=== PATIENT | female | born 1995 | race Caucasian/White ===

== ENCOUNTER 2018-03-18 08:44 | Emergency (ER) | payer BC ==
[2018-03-18 09:47] LABS: #Lymphocytes 2.2 thou/uL (1.20-3.40); #Monocytes 0.4 thou/uL (0.11-0.59); #Neutrophils 3.1 thou/uL (1.40-6.50); %Basophils 0.5 % (0.0-1.0); %Eosinophils 0.8 % (0.0-10.0); %Lymphocytes 38.2 % (21.0-51.0); %Monocytes 6.6 % (0.0-10.0); %Neutrophils 53.9 % (42.0-75.0); Hemoglobin 14.2 g/dL (12.0-16.0); Mean Corpuscular HGB CONC 34.5 g/dL (32.0-36.0); Mean Corpuscular Hemoglobin 31.6 pg (27.0-31.0); Mean Corpuscular Volume 91.4 fl (81.0-99.0); Platelet Count 293 thou/uL (130-400); RBC Distribution Width 11.2 % (11.5-14.5); White Blood Cell (WBC) Count 5.8 thou/uL (4.8-10.8)
[2018-03-18 10:07] LABS: ALT (SGPT) 12 U/L (8-55); AST (SGOT) 15 U/L (5-34); Alkaline Phosphatase 61 U/L (40-150); Anion Gap 12 mmol/L (10-20); BUN (Urea Nitrogen) 12 mg/dL (7.0-18.7); Bilirubin, Total 0.3 mg/dL (0.2-1.2); Calc. Creatinine Clearance 0 mL/min (70-130); Calcium 9.3 mg/dL (7.8-10.44); Carbon Dioxide 25 mmol/L (22-29); Chloride 106 mmol/L (98-107); Estimated GFR-MDRD 84; Glucose 86 mg/dL (70-105); Lipase 34 U/L (8-78); Potassium 4.2 mmol/L (3.5-5.1); Sodium 139 mmol/L (136-145)
[2018-03-18 10:12] LABS: CKMB 0.5 ng/mL (0-6.6); Troponin I Less than 0.010 ng/mL (< 0.028)
--- NOTE | 2018-03-18 10:46 | RAD ---
PA AND LATERAL CHEST: HISTORY: Difficulty breathing and back pain. FINDINGS: Heart size and mediastinum are within normal limits. The lungs appear clear of any focal infiltrativ e process. IMPRESSION: No active intrathoracic disease. POS: [facility]
--- NOTE | 2018-03-19 11:29 | EKG ---
Test Reason : Blood Pressure : / mmHG Vent. Rate : 084 BPM Atrial Rate : 084 BPM P-R Int : 154 ms QRS Dur : 076 ms QT Int : 354 ms P-R-T Axes : 046 077 039 degrees QTc Int : 418 ms Normal sinus rhythm Normal ECG Confirmed by BETSEY BIRD M.D. ([id number]), editor book LAUREN DAVISON ([id number]) on 03/19/2018 11:28:47 AM Referred By: Confirmed By:BETSEY BIRD M.D.
== END 2018-03-18 11:13 | disposition home or self-care (01) ==
LOC: ERS 08:44
DX: M54.6 Pain in thoracic spine (principal); R00.0 Tachycardia, unspecified
CPT/HCPCS: 36415; 71046; 80053; 82553; 83690; 84443; 84484; 85025; 85379; 93005